=== PATIENT | female | born 1965 | race Caucasian/White ===

== ENCOUNTER → 2019-03-08 08:50 | Outpatient (CLI) | payer OTHER, MEDICAID, SELFPAY ==
--- NOTE | 2019-03-08 | DI.MG.S_ITS ---
BILATERAL DIGITAL SCREENING MAMMOGRAM 3D/2D WITH CAD: 03/08/2019 CLINICAL: Routine screening. Comparison is made to exam dated: 02/09/2017 mammogram - [facility]. The tissue of both breasts is heterogeneously dense. This may lower the sensitivity of mammography. Current study was also evaluated with a Computer Aided Detection (CAD) system. There are a grouped calcifications in the left breast at 12 o'clock middle depth. No other significant masses, calcifications, or other findings are seen in either breast. IMPRESSION: INCOMPLETE: NEEDS ADDITIONAL IMAGING EVALUATION The grouped calcifications in the left breast are indeterminate. Spot magnification views are recommended. This exam was interpreted at Station ID: [id number]. NOTE: For mammograms, a report in lay terms will be sent to the patient. Approximately 15% of breast malignancies will not be visualized mammographically. In the management of a palpable breast mass, a negative mammogram must not discourage biopsy of a clinically suspicious lesion. Electronically Signed By: Brooke anders/марина:03/12/2019 08:57:30 letter sent: Additional Imaging Needed ACR BI-RADS Category 0: Incomplete 3340F
== END ==
PROVIDERS: PCP Specialist; Visit Provider Specialist
DX: Z12.31 Encounter for screening mammogram for malignant neoplasm of breast (principal)
CPT/HCPCS: 77063; 77067

== ENCOUNTER → 2019-03-15 14:25 | Outpatient (CLI) | payer OTHER, MEDICAID, SELFPAY ==
--- NOTE | 2019-03-15 | DI.MG.S_ITS ---
UNILATERAL LEFT DIGITAL DIAGNOSTIC MAMMOGRAM 3D/2D WITH ADDITIONAL VIEWS: 03/15/2019 CLINICAL: Additional evaluation requested from prior study. Comparison is made to exams dated: 03/08/2019 mammogram - [facility] and 02/09/2017 mammogram - [facility]. The tissue of left breast is heterogeneously dense. This may lower the sensitivity of mammography. There are grouped calcifications in the left breast at 12 o'clock middle depth. Magnification views demonstrante a benign appearance. These have been stable since 2017. No other significant masses or calcifications are seen in the breast. IMPRESSION: PROBABLY BENIGN The grouped calcifications in the left breast are probably benign. A follow-up left mammogram in 6 months is recommended to demonstrate stability. Findings and recommendations were conveyed to the patient at time of exam. This exam was interpreted at Station ID: [id number]. NOTE: For mammograms, a report in lay terms will be sent to the patient. Approximately 15% of breast malignancies will not be visualized mammographically. In the management of a palpable breast mass, a negative mammogram must not discourage biopsy of a clinically suspicious lesion. Electronically Signed By: Carlene louis/:03/15/2019 15:55:26 letter sent: Followup Recommended ACR BI-RADS Category 3: Probably benign [id number]
== END ==
PROVIDERS: PCP Specialist; Visit Provider Specialist
DX: R92.1 Mammographic calcification found on diagnostic imaging of breast (principal)
CPT/HCPCS: 77065; G0279

== ENCOUNTER → 2019-10-16 13:35 | Outpatient (CLI) | payer OTHER, MEDICAID, SELFPAY ==
--- NOTE | 2019-10-16 | DI.MG.S_ITS ---
UNILATERAL LEFT DIGITAL DIAGNOSTIC MAMMOGRAM 3D/2D SHORT-TERM FOLLOW-UP: 10/16/2019 CLINICAL: Patient returns for a 6 month follow up of the left breast. Comparison is made to exams dated: 03/15/2019 mammogram, 03/08/2019 mammogram - [facility], and 02/09/2017 mammogram - [facility]. The tissue of left breast is heterogeneously dense. This may lower the sensitivity of mammography. There are stable grouped punctate calcifications in the left breast at 12 o'clock middle depth. No other significant masses or calcifications are seen in the breast. IMPRESSION: PROBABLY BENIGN The stable grouped punctate calcifications in the left breast are probably benign. A follow-up mammogram in 6 months is recommended to demonstrate stability. Patient will also be due for screening right breast mammogram at that time. This exam was interpreted at Station ID: [id number]. NOTE: For mammograms, a report in lay terms will be sent to the patient. Approximately 15% of breast malignancies will not be visualized mammographically. In the management of a palpable breast mass, a negative mammogram must not discourage biopsy of a clinically suspicious lesion. Electronically Signed By: Josep Aguilar M.D. at/:10/16/2019 14:29:51 letter sent: Followup Recommended ACR BI-RADS Category 3: Probably benign 3343F
== END ==
PROVIDERS: PCP Specialist; Visit Provider Specialist
DX: R92.8 Other abnormal and inconclusive findings on diagnostic imaging of breast (principal); R92.1 Mammographic calcification found on diagnostic imaging of breast
CPT/HCPCS: 77065; G0279

== ENCOUNTER → 2020-02-14 13:05 | Outpatient (CLI) | payer OTHER, MEDICAID, SELFPAY ==
--- NOTE | 2020-02-14 | DI.CT.S_ITS ---
PROCEDURE: CT ABDOMEN PELVIS W CON INDICATIONS: R/O pelvic abscess post drainage 11/2019 TECHNIQUE: After the administration of oral and intravenous contrast, 5 mm thick sections acquired from the diaphragms to the symphysis. 5 mm thick coronal and sagittal reformats were performed. For radiation dose reduction, the following was used: automated exposure control, adjustment of mA and/or kV according to patient size. COMPARISON: Outside Film, CT, CT IVP, 10/02/2019, 10:09. FINDINGS: Image quality: Excellent. ABDOMEN: Lung bases: Lung bases are clear. Heart size is normal. Solid organs: Liver is normal in size. There is a 10 mm enhancing focus within the posterior aspect of the right hepatic lobe, which was not seen on the prior examination. Gallbladder is within normal limits. Biliary system is non-dilated. Pancreas enhances normally. Spleen is normal in size and enhancement. No adrenal nodules. Kidneys are normal in size and enhancement, without hydronephrosis. Peritoneum and bowel: Stomach, small bowel, and colon loops are normal in caliber and wall thickness. No free fluid or air. Nodes and vessels: No retroperitoneal or mesenteric adenopathy. Aorta and inferior vena cava are normal in caliber. Miscellaneous: No ventral hernias. PELVIS: Genitourinary: Mild diffuse urinary bladder wall thickening is present. Previously seen abscess involving the left superior urinary bladder wall and adjacent sigmoid colon is no longer present. Normal appearing adnexal cysts are present bilaterally. High density material within the endometrial canal is present. Miscellaneous: No inguinal hernias or adenopathy. Bones: No suspicious bony lesions. No vertebral body compression fractures. IMPRESSION: 1. 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 2. Normal appearing bilateral ovarian cysts. 3. Small amount of high density material within the endometrial canal, which could represent a small amount of hemorrhage. This could be further assessed with ultrasound, if clinically indicated. Dictated by: Elvie Church M.D. on 02/14/2020 at 14:24 Approved by: Elvie Church M.D. on 02/14/2020 at 14:29
== END ==
PROVIDERS: PCP Specialist; Referring Provider Specialist; Visit Provider Specialist
DX: N83.202 Unspecified ovarian cyst, left side (principal); N83.201 Unspecified ovarian cyst, right side
CPT/HCPCS: 74177; Q9967

== ENCOUNTER → 2020-02-28 12:45 | Outpatient (CLI) | payer OTHER, MEDICAID, SELFPAY ==
--- NOTE | 2020-02-28 | DI.US.S_ITS ---
PROCEDURE: US PELVIC COMPLETE INDICATIONS: ABNORMAL CT TECHNIQUE: Real-time scanning was performed of the pelvic organs, with image documentation. Additional endovaginal scanning was necessary due to incomplete visualization of the adnexal and endometrial structures by transabdominal scanning. COMPARISON: [facility], CT, CT ABDOMEN PELVIS W CON, 02/14/2020, 13:55. FINDINGS: Transabdominal scanning: Limited scanning through the kidneys shows no hydronephrosis. No pathologic free abdominal or pelvic fluid. Endovaginal scanning: Uterus: Uterus is normal in size at 8.7 x 4.5 x 5.5 cm. The endometrium measures 9.5 mm in combined thickness. Anterior center of a fibroid measuring up to 1.3 cm. Echogenic endocervical mildly vascular mass is present measuring 1.4 x 0.9 x 1.2 cm. Ovaries: Right ovary measures 3.4 x 1.2 x 2.5 cm and the left ovary measures 4.8 x 2.3 x 4.1 cm. 2 simple cysts associated with the left ovary, largest measuring up to 2.9 cm. Right ovary is normal. No free fluid. IMPRESSION: 1. Thickened endometrial complex and mildly vascular solid-appearing endocervical mass is present measuring up to 1.4 cm. Underlying neoplastic process cannot be excluded and gynecologic consultation is recommended as well as biopsy. 2. Simple left ovarian cysts. Annual sonographic surveillance recommended. Dictated by: Boni BARRIENTOS Interpreted: Jennifer Merino MD on 02/28/2020 at 14:28 Approved by: Jennifer Merino MD, PhD on 02/28/2020 at 14:55
== END ==
PROVIDERS: PCP Specialist; Referring Provider Specialist; Visit Provider Specialist
DX: R93.89 Abnormal findings on diagnostic imaging of other specified body structures (principal); N83.292 Other ovarian cyst, left side
CPT/HCPCS: 76830; 76856

== ENCOUNTER → 2020-04-10 14:54 | Outpatient (CLI) | payer OTHER, MEDICAID, SELFPAY ==
--- NOTE | 2020-04-10 | DI.MG.S_ITS ---
BILATERAL DIGITAL DIAGNOSTIC MAMMOGRAM 3D/2D SHORT-TERM FOLLOW-UP: 04/10/2020 CLINICAL: Patient returns for a 12 month follow up of the left breast, due for bilateral imaging. Comparison is made to exams dated: 10/16/2019 mammogram, 03/15/2019 mammogram, and 03/08/2019 mammogram - [facility]. The tissue of both breasts is heterogeneously dense. This may lower the sensitivity of mammography. Redemonstration of previously described grouped punctate calcifications in the left breast at 12 o'clock middle depth. These are less prominent and decreased in number. No other significant masses, calcifications, or other findings are seen in either breast. IMPRESSION: PROBABLY BENIGN The grouped punctate calcifications in the left breast are probably benign. A follow-up mammogram in 12 months is recommended to document two years of stability. Findings and recommendations were conveyed to the patient during today's visit. This exam was interpreted at Station ID: [id number]. NOTE: For mammograms, a report in lay terms will be sent to the patient. Approximately 15% of breast malignancies will not be visualized mammographically. In the management of a palpable breast mass, a negative mammogram must not discourage biopsy of a clinically suspicious lesion. Electronically Signed By: Josep Aguilar M.D. aty/:04/10/2020 17:17:28 letter sent: Followup Recommended ACR BI-RADS Category 3: Probably benign 3343F
== END ==
PROVIDERS: PCP Specialist; Referring Provider Specialist; Visit Provider Specialist
DX: R92.8 Other abnormal and inconclusive findings on diagnostic imaging of breast (principal); R92.1 Mammographic calcification found on diagnostic imaging of breast
CPT/HCPCS: 77066; G0279

== ENCOUNTER → 2020-10-14 09:14 | Outpatient (CLI) | payer OTHER, MEDICAID, SELFPAY ==
[2020-10-14 09:58] LABS: COVID19 -Nasal RAPID Negative (Negative)
[2020-10-14 10:15] LABS: Influenza A - CEPHEID Flu A NEGATIVE (NEGATIVE); Influenza B - CEPHEID Flu B NEGATIVE (NEGATIVE)
== END ==
PROVIDERS: PCP Specialist; Visit Provider Nurse Practitioner Family
DX: Z20.822 Contact with and (suspected) exposure to COVID-19 (principal); R68.89 Other general symptoms and signs
CPT/HCPCS: 87502; 87635

== ENCOUNTER 2021-04-06 09:45 | Emergency (ER) | payer OTHER, MEDICAID, SELFPAY ==
[2021-04-06 10:09] VITALS: BP 159/74; PULSE 114; RESP 14; TEMP 36.8; O2SAT 97; BMI 20.7
[2021-04-06 10:54] LABS: Bacteria Urine None Seen; RBC Urine None Seen (0-5/HPF); WBC Urine None Seen (0-5/HPF)
[2021-04-06 10:55] LABS: Appearance Urine UA CLEAR; Bilirubin Urine UA NEGATIVE (NEGATIVE); Color Urine UA YELLOW; Glucose Urine UA NEGATIVE (Negative); Ketones Urine UA NEGATIVE (NEGATIVE); Leukocyte Esterase Urine UA NEGATIVE (NEGATIVE); Nitrite Urine UA NEGATIVE (Negative); Occult Blood Urine UA NEGATIVE (Negative); Protein Urine UA NEGATIVE (Negative); Specific Gravity Urine UA <=1.005 (1.000-1.035); Urobilinogen Urine UA 0.2 E.U./dL (0.2)
[2021-04-06 10:56] LABS: UR Morphine/Opiate cutoff 300 Negative (Negative); Ur Creatinine Normal (Normal); Ur Specific Gravity Normal (Normal); Urine Amphetamines Negative (Negative); Urine Barbiturates Negative (Negative); Urine Benzodiazepines Negative (Negative); Urine Cocaine Negative (Negative); Urine Comments Microscopic Normal; Urine MDMA Negative (Negative); Urine Methadone Negative (Negative); Urine Methamphetamines Negative (Negative); Urine Oxycodone Negative (Negative); Urine Phencyclidine Negative (Negative); Urine Tetrahydrocannabinol Negative (Negative); Urine Tricyclic Antidepressant Negative (Negative); Urine pH Normal (Normal)
[2021-04-06 11:14] LABS: Add Manual Diff / Slide Review NO; Basophils Absolute Auto 0 /uL (0-100); Basophils Percent Auto 0.3 % (0-2); Eosinophils Absolute Auto 0 /uL (0-450); Eosinophils Percent Auto 0.2 % (2-4); Hematocrit 42.5 % (36-46); Hemoglobin 14.4 g/dL (12.0-16.0); Lymphocytes Absolute Auto 1100 /uL (1100-4500); Lymphocytes Percent Auto 20.8 % (25-40); Mean Corpuscular HGB Conc 33.8 % (30-36); Mean Corpuscular Hemoglobin 32.4 PG (26-34); Mean Corpuscular Volume 95.7 fL (80-100); Monocytes Absolute Auto 400 /uL (0-900); Monocytes Percent Auto 8.2 % (3-14); Neutrophils Absolute Auto 3700 /uL (1500-7000); Neutrophils Percent Auto 70.5 % (50-75); Platelet Count 223 X10^3/uL (150-400); Red Blood Cell Count 4.45 X10^6/uL (4.0-5.2); Red Cell Distribution Width 13.4 % (11.6-14.8); White Blood Cell Count 5.2 X10^3/uL (4.5-11.0)
[2021-04-06 11:26] LABS: Alanine Aminotransferase 21 IU/L (<35); Albumin 4.5 g/dL (3.5-5.0); Albumin Globulin Ratio 1.5 (1.0-2.8); Alkaline Phosphatase 53 U/L (38-126); Aspartate Aminotransferase 32 IU/L (14-36); BUN Creatinine Ratio 20.4 (6-22); Bilirubin Total 0.5 mg/dL (0.2-1.3); Blood Urea Nitrogen 11 mg/dL (7-17); Calcium 9.4 mg/dL (8.4-10.2); Carbon Dioxide 27 mmol/L (22-32); Chloride 103 mmol/L (98-107); Estimated Glomerular Filt Rate > 60.0 mL/min (>60); Ethanol (ETOH) < 10 mg/dL; Glucose 117 mg/dL (70-100); HEMOLYSIS < 15 (0-50); Potassium 4.4 mmol/L (3.4-5.1); Sodium 138 mmol/L (137-145); Total Protein 7.5 g/dL (6.3-8.2)
[2021-04-06] MEDS: LORazepam 0.5 MG TABLET 1 MG PO ×2 (11:48→16:49)
--- NOTE | 2021-04-06 12:42 | ED_ITS ---
HPI - Psych General Chief Complaint: Psychiatric Symptoms Stated Complaint: suicidal Time Seen by Provider: 04/06/21 12:04 Source: patient Mode of arrival: Ambulatory History of Present Illness HPI Narrative: Patient is a 55-year-old female has history of PTSD OCD, anxiety depression presenting with some thoughts of suicidal ideation. She says her partner just left to go to [place], her mom was here but she left on 1 of her best friends was here but she is in [place]. She is having difficult time sleeping taking eunm-lzy-ttctoez medication sign not up combined with alcohol to trying get some sleep. She says she does not quite drink a bottle of wine nightly but she recognizes that this is self medicating. She has intermittent thoughts of suicide. She initially admitted that she was suicidal to psychotherapist social worker but now being in the emergency department thinks maybe not a. She has obviously anxious tapping her leg. Related Data Home Medications Medication Instructions Recorded Confirmed estradiol 0.0375 mg/24 hr 0.0375 mg TRANSDERMAL 2XW 04/06/21 04/06/21 semiweekly transdermal patch progesterone micronized 200 mg 200 mg PO DAILY 04/06/21 04/06/21 capsule sertraline 50 mg tablet 50 mg PO DAILY 04/06/21 04/06/21 zaleplon 5 mg capsule 10 mg PO BEDTIME 04/06/21 04/06/21 Allergies Allergy/AdvReac Type Severity Reaction Status Date / Time No Known Drug Allergies Allergy Unverified 10/14/20 09:08 Review of Systems Review of Systems Narrative: GENERAL: Denies chills,fever HEENT: Denies throat pain RESPIRATORY: Denies dyspnea, cough, wheezing CARDIOVASCULAR: Denies chest pain, palpitations GASTROINTESTINAL: Denies nausea, vomiting MUSCULOSKELETAL: Denies extremity pain, injury SKIN: No rash, no laceration, no pruritus NEUROLOGIC: Denies weakness, dizziness, headache, numbness PSYCH: She HPI 8 point review of systems is negative except for those stated above and HPI Patient History Surgical History (Updated 10/14/20 @ 19:13 by BETTE Watkins) H/O abdominal surgery Social History Smoking Status: Never smoker alcohol intake: current substance use type: does not use Smoking Status: Never smoker alcohol intake frequency: 3 or more drinks per day Alcohol type: wine Substance Use Type: does not use Exam Initial Vital Signs Initial Vital Signs: Vital Signs Temperature 98.3 F 04/06/21 10:09 Pulse Rate 114 H 04/06/21 10:09 Respiratory Rate 14 04/06/21 10:09 Blood Pressure 159/74 H 04/06/21 10:09 Pulse Oximetry 97 04/06/21 10:09 GENERAL: Thin 55-year-old who is obviously anxious CARDIOVASCULAR: peripheral pulses in tact, cap refill <2 sec RESPIRATORY: No respiratory distress, speaks in full sentences without difficulty EXTREMITIES: Normal range of motion, no clubbing or edema. Neurovascularly intact NEUROLOGICAL: Cranial nerves II through XII grossly intact. Normal gait and speech. SKIN: Warm, dry, no petechiae, no rashes or lesions. Course Orders Ordered: ED Orders 04/06/21 10:57 Complete Blood Count AUTO DIFF Stat Comprehensive Metabolic Panel Stat Ethanol (ETOH) Stat TSH w/ Reflex to FT4 Stat 04/06/21 13:00 COVID19 -Nasal swab/Pre-Proc Stat Discontinued Medications Lorazepam (Lorazepam 0.5 Mg Tablet) 1 mg PO NOW ONE Stop: 04/06/21 11:41 Last Admin: 04/06/21 11:48 Dose: 1 mg Documented by: BRENDAN Lorazepam (Lorazepam 0.5 Mg Tablet) 1 mg PO NOW ONE Stop: 04/06/21 16:40 Last Admin: 04/06/21 16:49 Dose: 1 mg Documented by: SHANDA Vital Signs Vital signs: Vital Signs - 8 hr 04/06/21 15:02 04/06/21 17:59 Pulse Rate 89 84 Respiratory Rate 16 16 Blood Pressure 99/57 L 124/73 Pulse Oximetry 99 100 MDM - Psych Lab Data Result diagrams: 04/06/21 10:57 04/06/21 10:57 Labs: Lab Results 04/06/21 04/06/21 04/06/21 Range/Units 10:43 10:43 10:57 WBC 5.2 (4.5-11.0) X10^3/uL RBC 4.45 (4.0-5.2) X10^6/uL Hgb 14.4 (12.0-16.0) g/dL Hct 42.5 (36-46) % MCV 95.7 (80-100) fL MCH 32.4 (26-34) PG MCHC 33.8 (30-36) % RDW 13.4 (11.6-14.8) % Plt Count 223 (150-400) X10^3/uL Neut % (Auto) 70.5 (50-75) % Lymph % (Auto) 20.8 L (25-40) % [place] % (Auto) 8.2 (3-14) % Eos % (Auto) 0.2 L (2-4) % Baso % (Auto) 0.3 (0-2) % Neut # (Auto) 3700 (0640-3899) /uL Lymph # (Auto) 1100 (3971-5047) /uL [place] # (Auto) 400 (0-900) /uL Eos # (Auto) 0 (0-450) /uL Baso # (Auto) 0 (0-100) /uL Sodium (137-145) mmol/L Potassium (3.4-5.1) mmol/L Chloride (98-107) mmol/L Carbon Dioxide (22-32) mmol/L BUN (7-17) mg/dL Creatinine (0.52-1.04) mg/dL Estimated GFR (>60) mL/min BUN/Creatinine Ratio (6-22) Glucose (70-100) mg/dL Calcium (8.4-10.2) mg/dL Total Bilirubin (0.2-1.3) mg/dL AST (14-36) IU/L ALT (<35) IU/L Alkaline Phosphatase (38-126) U/L Total Protein (6.3-8.2) g/dL Albumin (3.5-5.0) g/dL Globulin (1.7-4.1) g/dL Albumin/Globulin Ratio (1.0-2.8) TSH (0.47-4.68) uIU/mL Urine Color Yellow Urine Appearance Clear Urine pH 7.0 (4.5-8.0) Ur Specific [place] <=1.005 (1.000-1.035) Urine Protein Negative (Negative) Urine Glucose (UA) Negative (Negative) g/dL Urine Ketones Negative (NEGATIVE) Urine Occult Blood Negative (Negative) Urine Nitrate Negative (Negative) Urine Bilirubin Negative (NEGATIVE) Urine Urobilinogen 0.2 (0.2) E.U./dL Ur Leukocyte Esterase Negative (NEGATIVE) Urine RBC None seen (0-5/HPF) Urine WBC None seen (0-5/HPF) Urine Bacteria None seen (None) Ur Culture Indicated? Culture not indicate Micro UA Comment Microscopic normal U Opiates 300ng/mL cut Negative (Negative) Ur Oxycodone Screen Negative (Negative) Urine Methadone Screen Negative (Negative) Ur Barbiturates Screen Negative (Negative) U Tricyclic Antidepress Negative (Negative) Ur Phencyclidine Scrn Negative (Negative) Ur Amphetamines Screen Negative (Negative) U Methamphetamines Scrn Negative (Negative) Ur MDMA Scrn (Ecstasy) Negative (Negative) U Benzodiazepines Scrn Negative (Negative) Urine Cocaine Screen Negative (Negative) U Marijuana (THC) Screen Negative (Negative) Ethyl Alcohol ( - 10) mg/dL SARS-CoV-2 (PCR) (Negative) 04/06/21 04/06/21 04/06/21 Range/Units 10:57 10:57 13:00 WBC (4.5-11.0) X10^3/uL RBC (4.0-5.2) X10^6/uL Hgb (12.0-16.0) g/dL Hct (36-46) % MCV (80-100) fL MCH (26-34) PG MCHC (30-36) % RDW (11.6-14.8) % Plt Count (150-400) X10^3/uL Neut % (Auto) (50-75) % Lymph % (Auto) (25-40) % [place] % (Auto) (3-14) % Eos % (Auto) (2-4) % Baso % (Auto) (0-2) % Neut # (Auto) (4290-7195) /uL Lymph # (Auto) (9760-9759) /uL [place] # (Auto) (0-900) /uL Eos # (Auto) (0-450) /uL Baso # (Auto) (0-100) /uL Sodium 138 (137-145) mmol/L Potassium 4.4 (3.4-5.1) mmol/L Chloride 103 (98-107) mmol/L Carbon Dioxide 27 (22-32) mmol/L BUN 11 (7-17) mg/dL Creatinine 0.54 (0.52-1.04) mg/dL Estimated GFR > 60.0 (>60) mL/min BUN/Creatinine Ratio 20.4 (6-22) Glucose 117 H (70-100) mg/dL Calcium 9.4 (8.4-10.2) mg/dL Total Bilirubin 0.5 (0.2-1.3) mg/dL AST 32 (14-36) IU/L ALT 21 (<35) IU/L Alkaline Phosphatase 53 (38-126) U/L Total Protein 7.5 (6.3-8.2) g/dL Albumin 4.5 (3.5-5.0) g/dL Globulin 3.0 (1.7-4.1) g/dL Albumin/Globulin Ratio 1.5 (1.0-2.8) TSH 1.40 (0.47-4.68) uIU/mL Urine Color Urine Appearance Urine pH (4.5-8.0) Ur Specific [place] (1.000-1.035) Urine Protein (Negative) Urine Glucose (UA) (Negative) g/dL Urine Ketones (NEGATIVE) Urine Occult Blood (Negative) Urine Nitrate (Negative) Urine Bilirubin (NEGATIVE) Urine Urobilinogen (0.2) E.U./dL Ur Leukocyte Esterase (NEGATIVE) Urine RBC (0-5/HPF) Urine WBC (0-5/HPF) Urine Bacteria (None) Ur Culture Indicated? Micro UA Comment U Opiates 300ng/mL cut (Negative) Ur Oxycodone Screen (Negative) Urine Methadone Screen (Negative) Ur Barbiturates Screen (Negative) U Tricyclic Antidepress (Negative) Ur Phencyclidine Scrn (Negative) Ur Amphetamines Screen (Negative) U Methamphetamines Scrn (Negative) Ur MDMA Scrn (Ecstasy) (Negative) U Benzodiazepines Scrn (Negative) Urine Cocaine Screen (Negative) U Marijuana (THC) Screen (Negative) Ethyl Alcohol < 10 ( - 10) mg/dL SARS-CoV-2 (PCR) Negative (Negative) MDM Narrative Medical decision making narrative: Patient remains voluntary for psychiatric unit. He is not be involuntary criteria. She has no local support at this time she is obviously quite anxious. I did discuss with her friend who agreed with hospitalization. Patient was given Ativan to help her anxiety which seemed to the emergency department Discharge Plan Departure Patient Disposition: Xfer Psychiatric Hosp Referrals: Harjit Henao MD [Primary Care Provider] -
--- NOTE | 2021-04-06 12:47 | CM.SWNOTE ---
CONTACT ASSEMBLER Assessment CONTACT ASSEMBLER - Hand Polisher Assessment CONTACT ASSEMBLER/Hand Polisher Assessment Time Spent with Patient Start date 04/06/21 Visit Start Time 11:00 Visit End Time 12:15 Total time Care Management spent on 1 hour 15 min patient visit-in minutes Mental Health Screening Include Onset, Duration, Intensity Presenting Problem Patient presents with severe anxiety SI with plan. Patient recently took sleeping pills and wine last evening Precipitating Event(s) Patient endorses drinking more each day and taking more sleeping pills than prescribed due to increasing anxiety due to life stresses and family. Patient endorses inability to sleep for the last several weeks. Patient Strengths Patient is open to getting help. Current Behavioral Health Provider(s) Patient has not current MH Include Facility, Provider, Ph. # outpatient providers but is open to seeking a provider. Psych. Hx Mental Health and Chemical Patient has hx of anxiety Dependency disorder and depression. Patient is prescribed setraline 50 mg daily, zaleplon 10 mg at bed time for her anxiety and depression. Patient endorses rx of Xanax that she is waiting for a refill for. Patient endorses recent increase of ETOH intake for the last 2-3 weeks with 2-3 glasses of wine daily, patient does not endorse any other substances. Family Hx of Behavioral Abuse Patient's friend endorses patient's issues with family and trauma. Psychiatric Hospitalizations (date(s)/ Patient endorses going to location) voluntary inpatient 15 years ago in [place] due to hx of very similar mental breakdown . Psychosocial information & Support Patient is 55 y/o female who Systems lives with partner that is airplane pilot photogrammetry and currently out of town in [place]. 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 patient endorsees her job to be stressful and causing anxiety. Legal Concerns Legal Matters - Outstanding Issues None reported Mental Status Orientation (Person/Place/Time) A/Ox4 Stated Mood anxious Affect (Congruent with Mood?) Anxious, labile, congruent with mood. Thought Content - Specify/Describe Patient denies obsessions, Obsessions, Delusions, Hallucinations delusions and hallucinations. Thought Processes (Cncjhwv-Pptexual-Iajl circumstantial Vkwxhaio-Jzjqzmak-Lsusccwdar- Rqffxgexxgylwu-Ipzorfh-Jnpdygwgkgfy- Thought Blocking) Speech (Ntyvys-Jbbn-Sjcfgtx-Rapid-Soft- Slow, soft Loud-Pressured) Motor (Ylpomt-Wnxadkeoc-Kduh-Other) excessive, patient's body shaking uncontrollably Insight (Hvgx-Zcim-Knxd/Limited) Fair/limited Judgement (Skpt-Sruu-Ofzx/Limited) poor/limited Impulse Control (Adequate-Impaired) adequate Memory (Syygvniwa-Xcehvf-Gksgws, intact, not formally assessed Impaired-Intact) Concentration (Intact-Impaired) intact Attention (Intact-Impaired) intact Behavior (Appropriate-Inappropriate) appropriate Risk Assessment Suicidal Ideation (Plan) Yes Homicidal Ideation (Plan) No Comment Patient denies HI. Patient endorses that she has researched how much of her medication she would need to kill self and would plan to take medication she has saved with consumption of alcohol. Patient endorses this SI and plan at presentation to the ED . Patient denies self harm. Intervention Intervention CONTACT ASSEMBLER meets with patient and patient calls friend/support as well. Patient endorses increasing and intermittent SI that she cannot stop thinking about. Patient endorses she called friend and her friend told her to come to the ED. Patient endorses concern with her current medications not working and she is not taking them as prescribed. Patient endorses her concern for increasing ETOH consumption as well and concern for her body's health. Patient endorses thoughts of Can't do it anymore and endorses her heart beating out of her chest, not being able to sleep for several weeks and pounding head ache. Patient endorses she is afraid she will move forward with her SI plan. Patient endorses she blacked out, does not remember a few hours of an evening a few weeks ago on 03/21/21 when she took sleeping medication and drank wine. It is the opinion of this CONTACT ASSEMBLER that patient is appropriate for and would benefit for inpatient behavioral health hospitalization. CONTACT ASSEMBLER reviews the above with ED provider Dr. Velásquez who indicates agreement and understanding. Plan RA Plan CONTACT ASSEMBLER to seek voluntary inpatient behavioral health bed for patient when medically clear. ILYA Miner
--- NOTE | 2021-04-06 12:56 | CM.SWNOTE ---
Addendum entered by Brittani Calderon 04/06/21 17:50: CLIENT SERVICE EXECUTIVE Note [facility] accepts patient with [address] Bravo. CLIENT SERVICE EXECUTIVE calls patient's per her request and CLIENT SERVICE EXECUTIVE speaks with Paul. It is reported that they have been together 4 years. Paul endorses hx of psycho babbling and this is the second worse episode he is aware of and endorses that patient had a breakdown 3 years ago that was worse. Paul endorses that he works week on/week off and is trying to change his schedule to be near her. CLIENT SERVICE EXECUTIVE provides patient with outpatient providers that take her insurance and provides this information with Paul as well. Plan: Patient to transfer to [facility] unit. ILYA Miner Original Note: CLIENT SERVICE EXECUTIVE Note CLIENT SERVICE EXECUTIVE calls [facility] and intake reports that they have beds and are willing to review patient for voluntary bed. CLIENT SERVICE EXECUTIVE faxes clinicals. Plan: CLIENT SERVICE EXECUTIVE to seek voluntary behavioral health inpatient bed for patient ILYA Miner
[2021-04-06 13:23] LABS: COVID19 -Nasal RAPID Negative (Negative)
[2021-04-06 15:02] VITALS: BP 99/57; PULSE 89; RESP 16; O2SAT 99
[2021-04-06 17:59] VITALS: BP 124/73; PULSE 84; RESP 16; O2SAT 100
== END 2021-04-06 18:10 ==
PROVIDERS: Emergency Provider Emergency Medicine; PCP Specialist
DX: R45.851 Suicidal ideations (principal); F41.9 Anxiety disorder, unspecified; Z20.822 Contact with and (suspected) exposure to COVID-19
CPT/HCPCS: 36415; 80053; 80305; 80320; 81001; 84443; 85025; 87635; 99284; C9803

== ENCOUNTER → 2023-02-07 15:22 | Outpatient (CLI) | payer BC, SELFPAY ==
--- NOTE | 2023-02-07 15:24 | DI.MG.S_ITS ---
BILATERAL DIGITAL SCREENING MAMMOGRAM 3D/2D WITH CAD: 02/07/2023 CLINICAL: Routine screening. Comparison is made to exams dated: 10/07/2021 mammogram - [facility], 04/10/2020 mammogram, 03/08/2019 mammogram, 03/15/2019 mammogram, and 10/16/2019 mammogram - [facility]. Both breasts are heterogeneously dense, which may obscure small masses (category c / 51-75% glandular tissue). Current study was also evaluated with a Computer Aided Detection (CAD) system. No significant masses, calcifications, or other findings are seen in either breast. There has been no significant interval change. IMPRESSION: NEGATIVE There is no mammographic evidence of malignancy. A 1 year screening mammogram is recommended. Based on the Tyrer Cuzick model (a risk assessment model) the patient's lifetime risk is 13.9% and her 10 year risk is 5.0%. According to the ACR, ACS, and NCCN guidelines, an annual breast MRI exam along with mammogram is recommended if the patient's lifetime risk is 20% or greater. This exam was interpreted at Station ID: [id number]. NOTE: For mammograms, a report in lay terms will be sent to the patient. Approximately 15% of breast malignancies will not be visualized mammographically. In the management of a palpable breast mass, a negative mammogram must not discourage biopsy of a clinically suspicious lesion. Electronically Signed By: Florentino moreno/марина:02/08/2023 08:10:41 letter sent: Normal Exam ACR BI-RADS Category 1: Negative 3341F
== END ==
PROVIDERS: PCP Specialist; Referring Provider Specialist; Visit Provider Specialist
DX: Z12.31 Encounter for screening mammogram for malignant neoplasm of breast (principal)
CPT/HCPCS: 77063; 77067

== ENCOUNTER → 2024-04-03 14:25 | Outpatient (CLI) | payer BC, SELFPAY ==
--- NOTE | 2024-04-03 14:26 | DI.MG.S_ITS ---
BILATERAL DIGITAL SCREENING MAMMOGRAM 3D/2D WITH CAD: 04/03/2024 CLINICAL: Routine screening. Comparison is made to exams dated: 02/07/2023 mammogram - [facility], 10/07/2021 mammogram - [facility], and 04/10/2020 mammogram - [facility]. Both breasts are heterogeneously dense, which may obscure small masses (category c / 51-75% glandular tissue). Current study was also evaluated with a Computer Aided Detection (CAD) system. No significant masses, calcifications, or other findings are seen in either breast. There has been no significant interval change. IMPRESSION: NEGATIVE There is no mammographic evidence of malignancy. A 1 year screening mammogram is recommended. Based on the Tyrer Cuzick model (a risk assessment model) the patient's lifetime risk is 13.6% and her 10 year risk is 5.1%. According to the ACR, ACS, and NCCN guidelines, an annual breast MRI exam along with mammogram is recommended if the patient's lifetime risk is 20% or greater. This exam was interpreted at Station ID: [id number]. NOTE: For mammograms, a report in lay terms will be sent to the patient. Approximately 15% of breast malignancies will not be visualized mammographically. In the management of a palpable breast mass, a negative mammogram must not discourage biopsy of a clinically suspicious lesion. Electronically Signed By: Carlene louis/марина:04/04/2024 08:34:18 letter sent: Normal Exam ACR BI-RADS Category 1: Negative 3341F
== END ==
PROVIDERS: PCP Specialist; Referring Provider Specialist; Visit Provider Specialist
DX: Z12.31 Encounter for screening mammogram for malignant neoplasm of breast (principal); R92.333 Mammographic heterogeneous density, bilateral breasts
CPT/HCPCS: 77063; 77067

== ENCOUNTER → 2025-06-27 15:24 | Outpatient (CLI) | payer BC, SELFPAY ==
--- NOTE | 2025-06-27 15:28 | DI.MG.S_ITS ---
MM screening mammo BI: 06/27/2025. BI-RADS: 0 CLINICAL: 59-year old female for bilateral screening mammogram. Tyrer-Cuzick lifetime risk of 12.1%. No personal or first-degree family history of breast cancer. PRIOR EXAMS 04/03/2024, 02/07/2023, 10/07/2021, 04/10/2020. MAMMOGRAPHY TECHNIQUE: 2D and 3D (tomosynthesis) digital mammographic views obtained, with additional images as needed for full coverage. Current study was also evaluated with a Computer Aided Detection (CAD) system. DENSITY C. The breasts are heterogeneously dense, which may obscure small masses. MAMMOGRAPHY FINDINGS Right: Lower Inner Quadrant, Middle depth: Focal asymmetry needing additional imaging evaluation. This finding has increased in prominence and is also slightly increased in size. Left: No suspicious mass, asymmetry, microcalcification, or other abnormality seen. IMPRESSION: Right (Asymmetry): Lower Inner Quadrant, Middle depth * Incomplete - focal asymmetry needing additional imaging evaluation. Left * No evidence of malignancy. RECOMMENDATIONS Right: Lower Inner Quadrant, Middle depth * Further evaluation with diagnostic mammography and diagnostic ultrasound. Ultrasound to be performed only if needed. OVERALL ASSESSMENT CATEGORY BI-RADS-0: Incomplete - Need Additional Imaging Evaluation. ELECTRONICALLY SIGNED: Josep Aguilar M.D. on 06/28/2025 at 07:28:22 AM PT Interpreting Station ID: [id number]
== END ==
LOC: MAMMO 15:28
PROVIDERS: Referring Provider Specialist; Visit Provider Specialist
DX: Z12.31 Encounter for screening mammogram for malignant neoplasm of breast (principal); R92.8 Other abnormal and inconclusive findings on diagnostic imaging of breast; R92.333 Mammographic heterogeneous density, bilateral breasts
CPT/HCPCS: 77063; 77067

== ENCOUNTER → 2025-07-17 12:08 | Outpatient (CLI) | payer BC, SELFPAY ==
--- NOTE | 2025-07-17 12:09 | DI.MG.S_ITS ---
MM diagnostic mammo unilat RT, US breast RT limited: 07/17/2025 BI-RADS: 2
== END ==
LOC: MAMMO 12:08
PROVIDERS: PCP Family Medicine; Referring Provider Family Medicine; Visit Provider Family Medicine
DX: R92.8 Other abnormal and inconclusive findings on diagnostic imaging of breast (principal); R92.331 Mammographic heterogeneous density, right breast; N64.89 Other specified disorders of breast
CPT/HCPCS: 76642; 77065; G0279